=== PATIENT | female | born 1945 | race African-American/Black ===

== ENCOUNTER 2017-10-28 09:30 | Outpatient (CLI) | payer OTHER ==
[~2017-10-28 09:30] MED LIST: FOSAMAX70 MG PO; GILTUSS TR TAB1 EACH PO; HYZAAR 100-121 UDTAB PO; HYZAAR 100/25 T1 TAB PO; MAXITROL EYE DRO5 ML OP; NORVASC5 MG PO; PERMETHRIN60 GM; SYNTHROID50 MCG PO; TENORMIN50 MG PO; ZITHROMAX500 MG PO; ZYRTEC10 MG PO
== END 2017-10-28 09:43 | disposition home or self-care (01) ==
LOC: SONOGRAMA 09:30
DX: N60.11 Diffuse cystic mastopathy of right breast (principal); N60.12 Diffuse cystic mastopathy of left breast; N64.4 Mastodynia

== ENCOUNTER 2019-11-23 05:55 | Day surgery (SDC) | payer OTHER | END 2019-11-23 09:24 | disposition home or self-care (01) | LOC: AMB-ENDOS 05:55 | PROVIDERS: ATTEND Colon & Rectal Surgery | DX: K62.89 Other specified diseases of anus and rectum (principal); K64.1 Second degree hemorrhoids ==

== ENCOUNTER 2020-04-07 15:22 | Outpatient (CLI) | payer OTHER | END 2020-04-07 15:37 | disposition home or self-care (01) | LOC: RAD 15:22 | PROVIDERS: ATTEND Internal Medicine Cardiovascular Disease | DX: I10 Essential (primary) hypertension (principal) ==

== ENCOUNTER → 2020-06-14 | Outpatient (CLI) | payer OTHER | END | disposition home or self-care (01) | LOC: PPH VACUNA | PROVIDERS: ATTEND Emergency Medicine Pediatric Emergency Medicine | DX: Z23 Encounter for immunization (principal) ==

== ENCOUNTER → 2020-07-04 08:33 | Outpatient (CLI) | payer OTHER | END | disposition home or self-care (01) | LOC: PPH VACUNA 08:33 | PROVIDERS: ATTEND Emergency Medicine Pediatric Emergency Medicine | DX: Z23 Encounter for immunization (principal) ==

== ENCOUNTER 2020-07-24 07:50 | Outpatient (CLI) | payer OTHER | END 2020-07-24 08:31 | disposition home or self-care (01) | LOC: SONOGRAMA 07:50 | PROVIDERS: ATTEND Pathology Anatomic Pathology & Clinical Pathology | DX: E04.2 Nontoxic multinodular goiter (principal); D34 Benign neoplasm of thyroid gland; E06.3 Autoimmune thyroiditis ==

== ENCOUNTER 2021-08-14 12:10 | Outpatient (CLI) | payer OTHER | END 2021-08-14 13:03 | disposition home or self-care (01) | LOC: LAB 12:10 | PROVIDERS: ATTEND Radiology Diagnostic Radiology | DX: K57.92 Diverticulitis of intestine, part unspecified, without perforation or abscess without bleeding (principal) ==

== ENCOUNTER 2021-09-16 07:17 | Outpatient (CLI) | payer OTHER | END 2021-09-16 07:19 | disposition home or self-care (01) | LOC: TOM 07:17 | PROVIDERS: ATTEND Internal Medicine Endocrinology, Diabetes & Metabolism | DX: K57.92 Diverticulitis of intestine, part unspecified, without perforation or abscess without bleeding (principal) | CPT/HCPCS: 74177; Q9965 ==

== ENCOUNTER 2021-09-29 04:02 | Emergency (ER) | payer OTHER ==
[~2021-09-29] VITALS: Ht 167.6 cm; Wt 65.3 kg
[2021-09-29] MEDS ORDERED: AZOR 5-40 MG T1 EACH (04:10)
[2021-09-29] MEDS ORDERED: METOPROLOL SUCC50 MG (04:10)
[2021-09-29] MEDS ORDERED: CHILDREN'S ASPI81 MG (04:11)
[2021-09-29] MEDS ORDERED: SIMVASTATIN80 MG (04:11)
[2021-09-29] MEDS ORDERED: CLOPIDOGREL BIS75 MG (04:11)
[2021-09-29] MEDS ORDERED: SYNTHROID88 MCG (04:12)
[2021-09-29] MEDS ORDERED: MOLNUPIRAVIR (200 MG PO (07:48)
[2021-09-29] MEDS ORDERED: VITAMIN C WIT1000 MG PO (07:48)
[2021-09-29] MEDS ORDERED: ACETAMINOPHEN650 M2 PO (07:48)
[2021-09-29] MEDS ORDERED: MUCINEX DM ER1 EAC1 PO (07:48)
== END 2021-09-29 08:00 | disposition home or self-care (01) ==
LOC: ER 04:02
DX: U07.1 COVID-19 (principal); I10 Essential (primary) hypertension; Z88.8 Allergy status to other drugs, medicaments and biological substances; Z91.018 Allergy to other foods

== ENCOUNTER 2022-02-16 05:31 | Day surgery (SDC) | payer OTHER ==
[~2022-02-16] VITALS: Ht 167.6 cm; Wt 66.2 kg
[~2022-02-16 05:31] MED LIST changes: +ACETAMINOPHEN650 M2 PO; +AZOR 5-40 MG T1 EACH; +CHILDREN'S ASPI81 MG; +CLOPIDOGREL BIS75 MG; +METOPROLOL SUCC50 MG; +MOLNUPIRAVIR (200 MG PO; +MUCINEX DM ER1 EAC1 PO; +SIMVASTATIN80 MG; +SYNTHROID88 MCG; +VITAMIN C WIT1000 MG PO
== END 2022-02-16 10:55 | disposition home or self-care (01) ==
LOC: CIR.AMB 05:31
PROVIDERS: ATTEND Orthopaedic Surgery Hand Surgery
DX: G56.01 Carpal tunnel syndrome, right upper limb (principal); Z20.822 Contact with and (suspected) exposure to COVID-19; Z88.8 Allergy status to other drugs, medicaments and biological substances; I10 Essential (primary) hypertension; Z86.16 Personal history of COVID-19; E03.9 Hypothyroidism, unspecified

== ENCOUNTER 2023-12-16 16:48 | Outpatient (CLI) | payer OTHER | END 2023-12-16 16:57 | disposition home or self-care (01) | LOC: TOM 16:48 | PROVIDERS: ATTEND General Practice | DX: R05.9 Cough, unspecified (principal) ==

== ENCOUNTER 2024-04-19 13:47 | Outpatient (CLI) | payer OTHER ==
[2024-05-02] MEDS ORDERED: TOPROL XL100 M1 (07:35)
[2024-05-02] MEDS ORDERED: ISOSORBIDE DINI30 MG (07:36)
[2024-05-02] MEDS ORDERED: CANDESARTAN-HC1 EAC2 (07:37)
== END 2024-04-19 13:51 | disposition home or self-care (01) ==
LOC: SONOGRAMA 13:47
PROVIDERS: ATTEND Pathology Anatomic Pathology & Clinical Pathology
DX: D34 Benign neoplasm of thyroid gland (principal); E06.3 Autoimmune thyroiditis; E04.2 Nontoxic multinodular goiter

== ENCOUNTER 2024-05-08 05:06 | Day surgery (SDC) | payer OTHER ==
[2024-05-02 07:48] LABS: HEMATOCRIT 37.8 % (36.0-45.00); HEMOGLOBIN 12.6 g/dL (12.0-15.00); MEAN CORPUSCULAR HEMOGLOBIN 29.6 pg (27.00-32.0); MEAN CORPUSCULAR HGB CONC 33.3 g/dl (32.0-36.0); PLATELET COUNT 217 K/uL (150-450); RED BLOOD COUNT 4.25 M/uL (4.00-6.00)
[2024-05-02 07:52] LABS: PH,URINE 6.5 (5.0-8.0); URINE APPEARANCE Clear; URINE BILIRRUBIN Negative (NEGATIVE); URINE BLOOD Negative; URINE COLOR Yellow; URINE GLUCOSE Negative (NEGATIVE); URINE KETONE Negative (NEGATIVE); URINE LEUKOCYTE Trace; URINE NITRATE Negative; URINE PROTEIN Trace (NEGATIVE)
[2024-05-02 07:56] LABS: URINE BACTERIA 42.8 uL (0.0-1933); URINE EPITHELIAL CELLS 33.9 uL (0.0-38.8); URINE WBC 52.8 uL (0.0-23.2)
[2024-05-02 08:08] LABS: INR 1.05; PARTIAL THROMBOPLASTIN TIME 23.9 SECONDS (22.0-34.0); PROTHROMBIN TIME 11.4 SECONDS (9.0-11.5)
[2024-05-02 08:45] LABS: ALBUMIN 3.8 gm/dL (3.4-5.0); BILIRUBIN TOTAL 0.55 mg/dL (0.3-1.2); CALCIUM 9.3 mg/dL (8.5-10.1); CREATININE SERUM 0.9 mg/dL (0.55-1.02); GFR 60.88; GLOBULINA 3.2 G/DL (2.4-3.5); POTASSIUM 3.73 mEq/L (3.5-5.1)
[2024-05-02 15:14] VITALS: BP 111/68
[~2024-05-08 05:06] MED LIST changes: +CANDESARTAN-HC1 EAC2; +ISOSORBIDE DINI30 MG; +TOPROL XL100 M1
[2024-05-08] MEDS ORDERED: BUPIVACAINE HCL 30 ML VIAL IJ ONE (10:45)
[2024-05-08] MEDS ORDERED: CEFAZOLIN SODIUM 1,000 MG in 0.9 % SODIUM CHLORIDE 50 ML IV ONE (10:45)
== END 2024-05-08 11:20 | disposition home or self-care (01) ==
LOC: CIR.AMB 05:06
PROVIDERS: ATTEND Orthopaedic Surgery Hand Surgery
DX: M67.832 Other specified disorders of synovium, left wrist (principal); D21.12 Benign neoplasm of connective and other soft tissue of left upper limb, including shoulder; R22.32 Localized swelling, mass and lump, left upper limb